=== PATIENT | male | born 1945 | race Two or more races ===

== ENCOUNTER 2016-11-10 11:17 | Emergency (ER) | payer OTHER ==
--- NOTE | ~2016-11-10 | CT2 ---
[facility] A Service of [facility] RADIOLOGY TEXT RESULTS PATIENT: AGNIESZKA MCCABE LOCATION: [facility] : 43 UNIT #: [id number] AGE: [address]: Truman Serrato MD SEX: M ORDER DR: [id number] [facility]. [place], [place] [address] [id number] MR#: [id number] #: [id number] NAME: AGNIESZKA MCCABE : 1945 SEX: M STUDY DATE/TIME: 11/10/2016 12:45 UNIT: [facility] ROOM: STUDY DESCRIPTION: CT Abd and Pelv W Cont Attending Physician: Truman Serrato M.D. Ordering Physician: Truman Serrato M.D. Primary Care Physician: No Primary Care Physician MEDICAL IMAGING REPORT This report is preliminary unless electronic signature is present EXAM CT of abdomen and pelvis with contrast. DATE OF EXAM 11/10/2016 HISTORY 71-year-old male in the ED with low abdomen pain and fullness. Dysuria. Urinary tract infection. TECHNIQUE CT examination of the abdomen and pelvis was performed with IV contrast. GI contrast material was not ordered. NOTE: This CT exam was performed with one or more of the following radiation dose reduction techniques: automatic exposure control, adjustment of mA and/or kV according to patient size, and iterative reconstruction. FINDINGS The exam shows significant distension of urinary bladder. There is mild hydronephrosis bilaterally, greater on the right. The findings suggest urinary retention or bladder outlet obstruction. The prostate is only mildly enlarged. No stone material is seen within the ureters or bladder. Left lower pole renal cyst measures about 5 cm, but the kidneys are otherwise negative. Liver, pancreas and spleen are within normal limits. No bile duct dilatation. Small bowel and colon are normal in caliber and appearance, as imaged. The appendix is not seen, but there is no evidence of acute appendicitis. PELVIS: Rectum is unremarkable. No inguinal hernia or significant abdominal wall hernia. Urinary bladder is noted above. Limited lung base images show no active disease in the lower chest. [facility] A Service of [facility] RADIOLOGY TEXT RESULTS PATIENT: AGNIESZKA [facility]CCABE [id number] 43 UNIT #: [id number] AGE: [address]: Truman Serrato MD SEX: M ORDER DR: IMPRESSION 1. Distended urinary bladder with mild bilateral hydronephrosis, greater on the right. The findings suggest urinary retention or bladder outlet obstruction. The prostate is only mildly enlarged. 2. 5 cm left lower pole renal cyst. 3. The remainder of the examination is negative. Dictated by... Suresh Santiago M.D. THIS IS AN ELECTRONICALLY VERIFIED REPORT Suresh Santiago M.D. at 11/11/2016 5:55 AM CARLOS/gillian TD: 11/10/2016 15:47 JOB #: [id number] MEDICAL IMAGING REPORT COPY
[2016-11-10 11:09] LABS: BASOPHIL% 0.4 % (0-2.5); EOSINOPHIL# 0.2 X10e3 (0-0.7); EOSINOPHIL% 4.2 % (0.0-7.0); HEMATOCRIT 42.7 % (38.0-50.0); HEMOGLOBIN 13.9 gm/dL (13.0-16.0); LYMPHOCYTE# 1.6 X10e3 (1.0-3.5); LYMPHOCYTE% 27.7 % (17.0-45.0); MEAN CELL VOLUME 80.4 FL (83-96); MEAN CORPUSCULAR HEMOGLOBIN 26.2 PG (28-34); MEAN CORPUSCULAR HGB CONC 32.6 g/dL (30-36); MEAN PLATELET VOLUME 8.7 FL (6.5-11.5); MONOCYTE# 0.7 X10e3 (0-1.0); MONOCYTE% 11.6 % (3.0-12.0); NEUTROPHIL# 3.2 X10e3 (1.5-7.1); NEUTROPHIL% 56.1 % (40-75); PLATELET COUNT 201 X10e3 (140-420); RED BLOOD COUNT 5.31 X10e (3.90-5.60); RED CELL DISTRIBUTION WIDTH 14.9 % (11.0-15.5); WHITE BLOOD COUNT 5.8 X10e3 (4.0-10.5)
[2016-11-10 11:13] LABS: DIFF IND NO
[2016-11-10 11:51] LABS: ALBUMIN SERUM 3.6 g/dL (3.5-5.0); ALKALINE PHOSPHATASE 78 U/L (32-92); ALT (SGPT) <5 U/L (10-40); AST (SGOT) 18 U/L (10-42); BILIRUBIN, DIRECT 0.1 mg/dL (0.0-0.2); BILIRUBIN,INDIRECT 0.5 mg/dL (0.0-0.9); BILIRUBIN,TOTAL 0.6 mg/dL (0.2-2.0); BLOOD UREA NITROGEN 17 mg/dL (9-23); BUN/CREATININE RATIO 28.33; CARBON DIOXIDE 32 mmol/L (22-31); CHLORIDE 101 mmol/L (100-111); CREATININE SERUM 0.6 mg/dL (0.6-1.4); GLOM FILT RATE Estimated ABOVE60 mL/min (>60); GLUCOSE FASTING 95 mg/dL (70-110); LIPASE 19 U/L (22-51); POTASSIUM 3.6 mmol/L (3.5-5.1); PROTEIN TOTAL SERUM 7.3 g/dL (6.0-8.3); SODIUM 139 mmol/L (135-145)
[2016-11-10 11:59] LABS: URINE SOURCE CLEAN CATCH
[2016-11-10 12:06] LABS: URINE APPEARANCE CLEAR; URINE BILIRUBIN NEG (NEG); URINE BLOOD NEG (NEG); URINE COLOR DK YELLOW; URINE GLUCOSE NEG (NEG); URINE KETONE TRACE (NEG); URINE LEUKOCYTE ESTERASE TRACE (NEG); URINE NITRATE NEG (NEG); URINE PROTEIN NEG (NEG); URINE UROBILINOGEN 0.2 MG/DL (NEG)
[2016-11-10 12:09] LABS: CULTURE INDICATED? YES; U HYALINE CASTS AUWI 0-2 /[LPF]; URINE BACTERIA AUWI NEG (NEGATIVE); URINE SQUAMOUS EPITHELIAL CELL NONE SEEN /[HPF]
== END 2016-11-10 14:48 | disposition home or self-care (01) ==
LOC: CED 11:17
PROVIDERS: Emergency Medicine
DX: R10.9 Unspecified abdominal pain (principal); R33.9 Retention of urine, unspecified
CPT/HCPCS: 36415; 51702; 74177; 80048; 80076; 81003; 83690; 85025; 87086; 96374; 96375; 99284; J0696; J2270; J2405; Q9967